=== PATIENT | male | born 1935 | race Caucasian/White ===

== ENCOUNTER 2019-09-04 16:39 | Inpatient (IN) | payer OTHER ==
[2019-09-04 16:51] VITALS: BMI 34.2
--- NOTE | 2019-09-04 16:52 | PDOC ---
Rapid Medical Evaluation Medical Evaluation: Allergies Allergy/AdvReac Type Severity Reaction Status Date / Time No Known Drug Allergies Allergy Verified 03/17/13 15:07 I have performed a brief in-person evaluation of this patient. The patient presents with a chief complaint of: hx of DM, HTN, HLD c/o LLQ abd pain pain from today along with 5 episodes of NBNB emesis, denies diarrhea, urinary sxs, fever, sob, cp; hx of appendectomy and kidney stones Pertinent physical exam findings: In NAD, mild TTP LLQ I have ordered the following: Labs The patient will proceed to the ED for further evaluation. 09/04/19 16:48
[2019-09-04] MEDS ORDERED: ACETAMINOPHEN 1000 MG/100 ML VIAL (NON FORMULARY) IVPB ONE (16:53)
[2019-09-04] MEDS ORDERED: SODIUM CHLORIDE 500 ML IV STA (16:53)
[2019-09-04] MEDS ORDERED: ONDANSETRON 4 MG/2 ML VIAL IVPUSH ONE (16:53)
[2019-09-04] MEDS ORDERED: ONDANSETRON 4 MG/2 ML VIAL ONE (17:30)
[2019-09-04] MEDS ORDERED: ACETAMINOPHEN INJECTION 100 ML IVPB ONE (17:30)
[2019-09-04 17:37] LABS: BASO % 0.3 % (0-2.0); EOS % 0.1 % (0-4.5); HEMATOCRIT 46.6 % (35.4-49); HEMOGLOBIN 15.5 GM/dL (11.7-16.9); LYMPH % 7.4 % (8-40); MCH 30.3 pg (25.7-33.7); MCHC 33.4 g/dl (32.0-35.9); MEAN CELL VOLUME 90.8 fl (80-96); MEAN PLT VOLUME 8.9 fl (7.5-11.1); MONO % 3.9 % (3.8-10.2); NEUT % 88.3 % (42.8-82.8); PLATELET COUNT 160 K/MM3 (134-434); RBC 5.13 M/mm3 (4.00-5.60); RDW 13.9 % (11.9-15.9); WHITE BLOOD COUNT 14.7 K/mm3 (4.0-10.0)
[2019-09-04] MEDS ORDERED: morphine CARPU-JECT 4 MG/1 ML DISP.SYRIN IVPUSH ONE ×2 (17:51→19:33)
[2019-09-04] MEDS ORDERED: FAMOTIDINE 20 MG/50 ML IVPB 20 MG/50 ML MG IVPB ONE ×2 (17:51→18:05)
[2019-09-04 17:53] LABS: EPI CELLS 0.5 /HPF (0-5/HPF); HYALINE CASTS 1 /lpf (0-8); URINE APPEARANCE CLEAR; URINE BACTERIA 0.7 /hpf (NEGATIVE); URINE BILIRUBIN NEGATIVE (NEGATIVE); URINE COLOR YELLOW; URINE GLUCOSE (UA) 3+ (NEGATIVE); URINE KETONE TRACE (NEGATIVE); URINE LEUK ESTERASE NEGATIVE (NEGATIVE); URINE NITRITE NEGATIVE (NEGATIVE); URINE PROTEIN TRACE (NEGATIVE); URINE UROBILINOGEN 0.2 mg/dL (0.2-1.0); URINE WBC 1 /hpf (0-5)
--- NOTE | 2019-09-04 17:57 | PDOC ---
History of Present Illness - General Chief Complaint: Pain Stated Complaint: ABDOMINAL PAIN/VOMITTING Time Seen by Provider: 09/04/19 16:48 History Source: Patient, Family Exam Limitations: No Limitations - History of Present Illness Initial Comments: 09/04/19 17:53 HPI 83-year-old male with history of kidney stone, hypertension, hyperlipidemia presenting with acute onset of left flank pain radiating down to left lower quadrant. started suddenly this afternoon, progressively worsening; feels similar to prior kidney stone, no prior interventions. last BM today, normal stooling. Denies fever, chills, chest pain, SOB, palpitation, dizziness, weakness, diarrhea or constiption. bladder and bowel problems, hematuria, urgency/ frequency, focal weakness/paresthesias, leg swelling/pain, rash. No sick contacts or travel. No new changes in medications. No suspicious food intake Allergies: None Past Medical History/PSH: Appendectomy Social history: Lives with family. No tobacco, ETOH or drug use. Meds: as documented in EMR - Ecotrin, omega-3, amlodipine, Jardiance, Januvia, atorvastatin, losartan, folic acid, B12, D3, glimepiride Review of systems Constitutional: no fevers or chills. No weakness HEENT: no headache or dizziness. No congestion. No visual/hearing disturbances. CVS: no cp or syncope. Resp: no sob. No cough. Gastrointestinal: +abdominal pain, nausea, vomiting, no constipation or diarrhea. Genitourinary: no urinary sx, hematuria. MUSCULOSKELETAL: No joint pain and swelling. No neck or back pain. SKIN: no redness or skin changes, no discharge, no rash. No wounds. Hematologic: no easy bruising/bleeding. NEUROLOGIC: No headache, dizziness, LOC or altered mental status. No weakness, numbness or tingling. Psych: no anxiety or depression Allergic/Immunologic: no allergies All other systems reviewed and negative, or as documented in HPI. Physical exam General: moderate distress 2/2 nausea/vomiting. HEENT: NCAT, PERRL, EOMI, clear conjunctiva, anicteric, moist mucus membranes, clear oropharynx, no oral lesions.. Neck: neck supple, FROM Resp: CTAB, normal and even respirations, no respiratory distress CVS: +tachycardia, no murmurs, 2+ peripheral pulses throughout, no peripheral edema Abdomen: soft, +vol guarding, +Left flank and LUQ TTP. no CVAT Back: nontender, normal inspection and ROM MSK: no edema, FAY x4, ROM intact. No clubbing or cyanosis. normal bulk and tone. Neuro: alert, oriented appropriately; no focal neurologic deficits Psych: Calm and cooperative Skin: warm and well perfused, cap refill <2 sec, normal color, no rash or skin discoloration. Past History - Past Medical History Allergies/Adverse Reactions: Allergies Allergy/AdvReac Type Severity Reaction Status Date / Time No Known Drug Allergies Allergy Verified 09/04/19 16:51 Home Medications: Ambulatory Orders Docosahexanoic Acid/Epa [Fish Oil Softgel] 1 each PO DAILY #0 capsule 03/18/13 Ezetimibe/Simvastatin [Vytorin 10-40 mg Tablet] 1 each PO DAILY #0 tablet Losartan Potassium 100 mg PO DAILY #0 tablet 03/18/13 Ramipril [Altace] 10 mg PO DAILY #0 capsule 03/18/13 Anemia: No Asthma: No Cancer: No Cardiac Disorders: No CVA: No COPD: No CHF: No Dementia: No Diabetes: Yes (BORDERLINE DIABETES) GI Disorders: No Disorders: No HTN: Yes Hypercholesterolemia: Yes Liver Disease: No Seizures: No Thyroid Disease: No - Surgical History Appendectomy: Yes - Psycho Social/Smoking Cessation Hx Smoking History: Never smoked Have you smoked in the past 12 months: No Hx Alcohol Use: No Drug/Substance Use Hx: No Substance Use Type: None Hx Substance Use Treatment: No *Physical Exam - Vital Signs Last Vital Signs Temp Pulse Resp BP Pulse Ox 97 F L 87 18 166/73 98 09/04/19 16:47 09/04/19 16:47 09/04/19 16:47 09/04/19 16:47 09/04/19 16:47 ED Treatment Course - LABORATORY CBC & Chemistry Diagram: 09/04/19 17:30 09/04/19 17:30 - ADDITIONAL ORDERS Additional order review: Laboratory Results 09/04/19 17:30 Urine Color Yellow Urine Appearance Clear Urine pH 5.0 Ur Specific [place] 1.023 Urine Protein Trace Urine Glucose (UA) 3+ H Urine Ketones Trace H Urine Blood 3+ H Urine Nitrite Negative Urine Bilirubin Negative Urine Urobilinogen 0.2 Ur Leukocyte Esterase Negative Urine WBC (Auto) 1 Urine Casts (Auto) 1 U Epithel Cells (Auto) 0.5 Urine Bacteria (Auto) 0.7 09/04/19 17:30 RBC 5.13 MCV 90.8 MCHC 33.4 RDW 13.9 MPV 8.9 Neutrophils % 88.3 H Lymphocytes % 7.4 L Monocytes % 3.9 Eosinophils % 0.1 Basophils % 0.3 - RADIOLOGY Radiology Studies Ordered: Category Date Time Status SPIRAL- RENAL-STONE CT [CT] Stat CT Scan 09/04/19 17:52 Ordered - Medications Given in the ED: ED Medications Discontinued Medications Generic Name Dose Route Start Last Admin Trade Name Freq PRN Reason Stop Dose Admin Acetaminophen 1,000 mg 09/04/19 16:53 09/04/19 17:35 Ofirmev Injection - IVPB 09/04/19 16:54 1,000 mg ONCE ONE Administration Sodium Chloride 500 mls @ 500 mls/hr 09/04/19 16:53 09/04/19 17:35 Normal Saline - IV 09/04/19 17:52 500 mls/hr ASDIR STA Administration Medical Decision Making - Medical Decision Making 09/04/19 17:55 Vital Signs Temp Pulse Resp BP Pulse Ox 97 F L 87 18 166/73 98 09/04/19 16:47 09/04/19 16:47 09/04/19 16:47 09/04/19 16:47 09/04/19 16:47 DDx abdominal pain: Renal colic, biliary colic, metabolic/electrolyte derangements. GERD, PUD, esophageal spasm, pancreatitis, hepatitis, constipation , colitis, gastroenteritis, cholecystitis, UTI, pyelonephritis, ileus, SBO, medication side effect, hernia, appendicitis, diverticulitis, mesenteric ischemia. msk strain, mesenteric adenitis, psoas abscess. Laboratory results significant for leukocytosis 14.7K, electrolytes are normal, mild GAYATHRI is noted with creatinine 1.8, electrolytes are fine. Urinalysis reveals hematuria trace ketones and some glucose negative preliminarily for infection. This is going more with presumed kidney stone. CT spiral to elucidate location and stone presents. Limited bedside ultrasound with bilateral renal cysts, no significant hydro-confirm with CT spiral analgesia given, IVF, zofran, tylenol/morphine, CT does show mid ureter 4mm stone, +moderate hydro uro cs, wbc ct and Cr elevation with stone. admit for pain control, GAYATHRI/leukocytosis in setting of stone. s/o overnight attending Dr Traore, pending CT read, uro eval and admission. pt and family amenable to impression and plan 09/04/19 18:39 09/04/19 20:01 Discharge - Discharge Information Problems reviewed: Yes Clinical Impression/Diagnosis: Ureterolithiasis, Hydronephrosis Condition: Fair - Admission Yes - Follow up/Referral - Patient Discharge Instructions - Post Discharge Activity
[2019-09-04] MEDS ORDERED: morphine SULFATE 4 MG/ML VIAL ONE ×2 (18:05→20:09)
[2019-09-04 18:06] LABS: ALBUMIN 4.3 g/dl (3.4-5.0); BILIRUBIN,TOTAL 0.8 mg/dL (0.2-1); CALCIUM 9.7 mg/dL (8.5-10.1); CREATININE 1.8 mg/dL (0.55-1.3); POTASSIUM 4.6 mmol/L (3.5-5.1); TOT PROT 7.4 g/dl (6.4-8.2)
[2019-09-04 19:52] LABS: YEAST 0 (NEGATIVE)
[2019-09-04 19:56] LABS: URINE RBC 20.6 /hpf (0-4)
--- NOTE | 2019-09-04 20:48 | HP ---
Admitting History and Physical - Primary Care Physician PCP: Cori Szymanski - Admission Chief Complaint: Left Flank Pain, Abdominal Pain History of Present Illness: This is a 83 y/o man with a PMHx of Renal Calculi, Hypertension, Hyperlipidemia. Who presents to the ED with acute onset of left flank pain radiating down to left lower quadrant since this afternoon. Patient reports that the pain is progressively worse, similar to prior renal colic, no prior interventions. Patient reports having a BM today firm and brown. Patient denies fever, cough, dizziness, SOB, CP, palpitations, nausea, diarrhea, hematochezia, melena, constipation, hematuria, dysuria. Patient denies no sick contacts or recent travel. Patient denies no new changes in medications, no suspicious food intake. History Source: Patient Limitations to Obtaining History: No Limitations - Past Medical History Cardiovascular: Yes: HTN, Hyperlipdemia Renal/: Yes: Renal Calculi - Past Surgical History Past Surgical History: Yes: Appendectomy, Joint Replacement (Left Knee) - Smoking History Smoking history: Never smoked Have you smoked in the past 12 months: No - Alcohol/Substance Use Hx Alcohol Use: No History of Substance Use: reports: None - Social History Usual Living Arrangement: Yes: Other (family) ADL: Independent History of Recent Travel: No Home Medications - Allergies Allergies/Adverse Reactions: Allergies Allergy/AdvReac Type Severity Reaction Status Date / Time No Known Drug Allergies Allergy Verified 09/04/19 16:51 - Home Medications Home Medications: Ambulatory Orders Docosahexanoic Acid/Epa [Fish Oil Softgel] 1 each PO DAILY #0 capsule 03/18/13 Ezetimibe/Simvastatin [Vytorin 10-40 mg Tablet] 1 each PO DAILY #0 tablet Losartan Potassium 100 mg PO DAILY #0 tablet 03/18/13 Ramipril [Altace] 10 mg PO DAILY #0 capsule 03/18/13 Family Medical History Family Hx Cardiac Disorders: Mother ([place] in her 50's), Father ( age 91) Family Hx Diabetes: Sister Review of Systems - Review of Systems Constitutional: reports: Chills Eyes: reports: No Symptoms HENT: reports: No Symptoms Neck: reports: No Symptoms Cardiovascular: reports: No Symptoms Respiratory: reports: No Symptoms Gastrointestinal: reports: Abdominal Pain, Vomiting Genitourinary: reports: Flank Pain Breasts: reports: No Symptoms Reported Musculoskeletal: reports: No Symptoms Integumentary: reports: No Symptoms Neurological: reports: No Symptoms Endocrine: reports: No Symptoms Hematology/Lymphatic: reports: No Symptoms Psychiatric: reports: No Symptoms Pain Intensity: 8 Physical Examination Vital Signs: Vital Signs Temperature 97.4 F L 09/04/19 19:56 Pulse Rate 87 09/04/19 19:56 Respiratory Rate 14 09/04/19 19:56 Blood Pressure 144/84 09/04/19 19:56 O2 Sat by Pulse Oximetry (%) 97 09/04/19 19:56 Constitutional: Yes: Well Nourished, No Distress, Calm, Obese Eyes: Yes: WNL, Conjunctiva Clear, EOM Intact, PERRL HENT: Yes: WNL, Atraumatic, Normocephalic Neck: Yes: WNL, Supple, Trachea Midline Cardiovascular: Yes: WNL, Regular Rate and Rhythm, S1, S2 Respiratory: Yes: WNL, Regular, CTA Bilaterally Gastrointestinal: Yes: Normal Bowel Sounds, Soft, Abdomen, Obese, Tenderness ( LMQ) Renal/: Yes: WNL. No: CVA Tenderness - Left, CVA Tenderness - Right Breast(s): Yes: WNL Musculoskeletal: Yes: WNL Extremities: Yes: WNL Edema: No Peripheral Pulses WNL: Yes Integumentary: Yes: WNL Neurological: Yes: WNL, Alert, Oriented, Cran Nerves II-XII Intact ...Motor Strength: WNL Psychiatric: Yes: WNL, Alert, Oriented Labs: CBC, BMP 09/04/19 17:30 09/04/19 17:30 Laboratory Results - last 24 hr 09/04/19 09/04/19 09/04/19 17:30 17:30 17:30 WBC 14.7 H RBC 5.13 Hgb 15.5 Hct 46.6 MCV 90.8 MCH 30.3 MCHC 33.4 RDW 13.9 Plt Count 160 MPV 8.9 Absolute Neuts (auto) 13.0 H Neutrophils % 88.3 H Lymphocytes % 7.4 L Monocytes % 3.9 Eosinophils % 0.1 Basophils % 0.3 Nucleated RBC % 0 Sodium 137 Potassium 4.6 Chloride 107 Carbon Dioxide 22 Anion Gap 8 BUN 35.0 H Creatinine 1.8 H Est GFR (CKD-EPI)AfAm 40.02 Est GFR (CKD-EPI)NonAf 34.53 Random Glucose 184 H Calcium 9.7 Total Bilirubin 0.8 AST 18 ALT 21 Alkaline Phosphatase 70 Total Protein 7.4 Albumin 4.3 Lipase 97 Urine Color Yellow Urine Appearance Clear Urine pH 5.0 Ur Specific [place] 1.023 Urine Protein Trace Urine Glucose (UA) 3+ H Urine Ketones Trace H Urine Blood 3+ H Urine Nitrite Negative Urine Bilirubin Negative Urine Urobilinogen 0.2 Ur Leukocyte Esterase Negative Urine WBC (Auto) 1 Urine RBC (Auto) 20.6 Urine Casts (Auto) 1 U Epithel Cells (Auto) 0.5 Urine Bacteria (Auto) 0.7 Urine Yeast (Auto) 0 Imaging - Results Chest X-ray: Image Reviewed Cat Scan: Report Reviewed, Image Reviewed EKG: Image Reviewed Problem List - Problems (1) Ureterolithiasis Assessment/Plan: CTAP- 5x2mm calculus in Left UPJ, mild-moderate L- hydronephrosis, 2mm nonobstructing left renal calyceal, b/l renal cortical cysts. UA- +3 Blood, +3 Glucose, trace Ketones Urine Culture-pending Leukocytosis with L- shift Appreciate Urology consult Continue IVF Flomax Strain urine Monitor CBC, BMP Monitor vitals NPO Code(s): N20.1 - CALCULUS OF URETER (2) Hydronephrosis Assessment/Plan: See above Code(s): N13.30 - UNSPECIFIED HYDRONEPHROSIS (3) Abdominal pain Assessment/Plan: Likely due to Nephrolithiasis CTAP report- 5x2mm calculus left UPJ, 2mm nonobstructing left renal calyceal calculus, cholelithiasis Continue IVF Morphine Sulfate given in ED, would use judiciously Ofirmev prn Monitor CBC, BMP Monitor vitals Code(s): R10.9 - UNSPECIFIED ABDOMINAL PAIN (4) HTN (hypertension) Assessment/Plan: stable Monitor BP Continue Losartan Hold Ramipril secondary to GAYATHRI Monitor renal function Code(s): I10 - ESSENTIAL (PRIMARY) HYPERTENSION (5) HLD (hyperlipidemia) Assessment/Plan: stable Continue home med Monitor LFTs Code(s): E78.5 - HYPERLIPIDEMIA, UNSPECIFIED Assessment/Plan This is a 83 y/o man with a PMHx of HTN, HLD, Renal Calculi. Admitted for Nephrolithiasis, GAYATHRI for further evaluation of their emergent condition. Plan: See Problem List FEN D51/2NS@42ml/hr Replete lytes prn NPO DVT ppx OOB SCDs Hold ACs secondary to Hematuria Code Status: Full Code Dispo: Requires Inpatient Care Visit type - Emergency Visit Emergency Visit: Yes ED Registration Date: 09/04/19 Care time: The patient presented to the Emergency Department on the above date and was hospitalized for further evaluation of their emergent condition. - New Patient This patient is new to me today: Yes Date on this admission: 09/04/19 - Critical Care Critical Care patient: No
[2019-09-04] MEDS: SODIUM CHLORIDE 1,000 ML IV SCH (21:08)
[2019-09-04] MEDS ORDERED: ACETAMINOPHEN 1000 MG/100 ML VIAL (NON FORMULARY) IVPB PRN (23:00)
[2019-09-05] MEDS: TAMSULOSIN HCL 0.4 MG CAP PO SCH (08:23)
[2019-09-05 08:40] LABS: BASO % 0.2 % (0-2.0); EOS % 0.2 % (0-4.5); HEMATOCRIT 42.9 % (35.4-49); HEMOGLOBIN 14.5 GM/dL (11.7-16.9); LYMPH % 11.3 % (8-40); MCH 30.6 pg (25.7-33.7); MCHC 33.9 g/dl (32.0-35.9); MEAN CELL VOLUME 90.4 fl (80-96); MEAN PLT VOLUME 9.1 fl (7.5-11.1); MONO % 10.3 % (3.8-10.2); PLATELET COUNT 160 K/MM3 (134-434); RBC 4.74 M/mm3 (4.00-5.60); RDW 14.2 % (11.9-15.9); WHITE BLOOD COUNT 10.6 K/mm3 (4.0-10.0)
[2019-09-05 09:05] LABS: BLOOD UREA NITROGEN 28.5 mg/dL (7-18); CALCIUM 9.1 mg/dL (8.5-10.1); CREATININE 1.9 mg/dL (0.55-1.3)
[2019-09-05] MEDS ORDERED: EZETIMIBE 10 MG TABLET (FP) PO SCH ×2 (10:00→22:00)
--- NOTE | 2019-09-05 11:29 | EKG ---
Test Reason : Blood Pressure : / mmHG Vent. Rate : 088 BPM Atrial Rate : 088 BPM P-R Int : 216 ms QRS Dur : 158 ms QT Int : 448 ms P-R-T Axes : 024 -19 175 degrees QTc Int : 542 ms SINUS RHYTHM WITH 1ST DEGREE A-V BLOCK WITH FREQUENT PREMATURE VENTRICULAR COMPLEXES LEFT BUNDLE BRANCH BLOCK ABNORMAL ECG WHEN COMPARED WITH ECG OF 10-JUL-2008 09:26, PREMATURE VENTRICULAR COMPLEXES ARE NOW PRESENT [place] INTERVAL HAS INCREASED VENT. RATE HAS INCREASED BY 44 BPM LEFT BUNDLE BRANCH BLOCK HAS REPLACED INCOMPLETE RIGHT BUNDLE BRANCH BLOCK Confirmed by AZAM PRESSLEY MD ([id number]) on 09/05/2019 11:28:58 AM Referred By: Confirmed By:AZAM PRESSLEY MD
[2019-09-05] MEDS: LOSARTAN POTASSIUM 50 MG TABLET (FP) PO SCH (12:19)
--- NOTE | 2019-09-05 13:24 | PN ---
Progress Note, Physician Chief Complaint: AWAKE ALERT EVENTS REVIEWED FEELS BETTER NOW - Current Medication List Current Medications: Active Medications Acetaminophen (Ofirmev Injection -) 1,000 mg IVPB Q6H PRN PRN Reason: PAIN LEVEL 6-10 Last Admin: 09/05/19 00:45 Dose: 1,000 mg Atorvastatin Calcium (Lipitor -) 20 mg PO HS KATERIN Ezetimibe (Zetia -) 10 mg PO HS KATERIN Sodium Chloride (Normal Saline -) 1,000 mls @ 42 mls/hr IV ASDIR [facility] Last Admin: 09/04/19 21:08 Dose: 42 mls/hr Losartan Potassium (Cozaar -) 100 mg PO DAILY [facility] Last Admin: 09/05/19 12:19 Dose: 100 mg Tamsulosin HCl (Flomax -) 0.4 mg PO DAILY@0830 [facility] Last Admin: 09/05/19 08:23 Dose: 0.4 mg - Objective Vital Signs: Vital Signs Temperature 98.4 F 09/05/19 08:28 Pulse Rate 74 09/05/19 08:28 Respiratory Rate 18 09/05/19 08:28 Blood Pressure 117/70 09/05/19 08:28 O2 Sat by Pulse Oximetry (%) 97 09/04/19 19:56 Constitutional: Yes: Mild Distress Cardiovascular: Yes: Regular Rate and Rhythm Respiratory: Yes: WNL Gastrointestinal: Yes: WNL, Abdomen, Obese Genitourinary: Yes: CVA Tenderness - Left Musculoskeletal: Yes: Back Pain Edema: No Peripheral Pulses WNL: Yes Integumentary: Yes: WNL Wound/Incision: Yes: Clean/Dry Neurological: Yes: WNL ...Motor Strength: WNL Psychiatric: Yes: WNL Labs: CBC, BMP 09/05/19 08:00 09/05/19 08:00 Problem List - Problems (1) Abdominal pain Code(s): R10.9 - UNSPECIFIED ABDOMINAL PAIN (2) HLD (hyperlipidemia) Code(s): E78.5 - HYPERLIPIDEMIA, UNSPECIFIED (3) HTN (hypertension) Code(s): I10 - ESSENTIAL (PRIMARY) HYPERTENSION (4) Hydronephrosis Code(s): N13.30 - UNSPECIFIED HYDRONEPHROSIS (5) Ureterolithiasis Code(s): N20.1 - CALCULUS OF URETER Assessment/Plan WORKUP IVF RENAL EVAL CHECK LABS MAY NEED CYSTOSCOPY, AWAIT WORKUP
[2019-09-05] MEDS ORDERED: morphine SULFATE 4 MG/ML VIAL IVPUSH PRN (13:25)
[2019-09-05] MEDS: SODIUM CHLORIDE 1,000 ML IV SCH (21:24)
[2019-09-05] MEDS ORDERED: ATORVASTATIN CA 20 MG TABLET (FP) PO SCH (22:00)
[2019-09-06 07:56] LABS: HEMATOCRIT 40.9 % (35.4-49); HEMOGLOBIN 13.7 GM/dL (11.7-16.9); MCH 30.7 pg (25.7-33.7); MCHC 33.6 g/dl (32.0-35.9); MEAN CELL VOLUME 91.2 fl (80-96); MEAN PLT VOLUME 8.8 fl (7.5-11.1); PLATELET COUNT 149 K/MM3 (134-434); RBC 4.48 M/mm3 (4.00-5.60); WHITE BLOOD COUNT 8.1 K/mm3 (4.0-10.0)
[2019-09-06 08:30] LABS: BLOOD UREA NITROGEN 30.8 mg/dL (7-18); CALCIUM 8.9 mg/dL (8.5-10.1); POTASSIUM 4.2 mmol/L (3.5-5.1)
[2019-09-06] MEDS: TAMSULOSIN HCL 0.4 MG CAP PO SCH (08:53)
[2019-09-06] MEDS: LOSARTAN POTASSIUM 50 MG TABLET (FP) PO SCH (08:58)
[2019-09-06] MEDS ORDERED: SODIUM CHLORIDE 1,000 ML IV SCH (09:25)
--- NOTE | 2019-09-06 09:25 | CONSULT ---
Consult - text type - Consultation Consultation Note: Renal consult for GAYATHRI Coverage for Dr. Díaz This is a 83 year old gentleman with history of nephrolithiasis, hypertension and hyperlipidemia who presented with flank pain and found to have a obstructing stone causing hydronephrosis and GAYATHRI. Pt with history of stones in the past. No history of renal dysfunction. No sob, chest pain, abd pain, fever ro chills. No leg swelling. No NSAID use. No recent contrast exposure. PMHx: as above Allergies: NKDA Family Hx: NC Social Hx: No T/A/D ROS: as per HPI, all other pertinent ros negative Home Medications Medication Instructions Recorded Docosahexanoic Acid/Epa [Fish Oil 1 each PO DAILY #0 capsule 03/18/13 Softgel] Ezetimibe/Simvastatin [Vytorin 1 each PO DAILY #0 tablet 03/18/13 10-40 mg Tablet] Losartan Potassium 100 mg PO DAILY #0 tablet 03/18/13 Ramipril [Altace] 10 mg PO DAILY #0 capsule 03/18/13 Amlodipine Besylate [Norvasc -] 5 mg PO DAILY 09/05/19 Atorvastatin Ca [Lipitor] 40 mg PO HS 09/05/19 Empagliflozin [Jardiance] 25 mg PO DAILY 09/05/19 Folic Acid 1 mg PO DAILY 09/05/19 Glimepiride 1 mg PO DAILY 09/05/19 Sitagliptin Phosphate [Januvia] 100 mg PO DAILY 09/05/19 Vital Signs Temperature 98.1 F 09/06/19 09:00 Pulse Rate 86 09/06/19 09:00 Respiratory Rate 18 09/06/19 09:00 Blood Pressure 113/62 09/06/19 09:00 O2 Sat by Pulse Oximetry (%) 97 09/04/19 19:56 Intake & Output 09/03/19 09/04/19 09/05/19 09/06/19 23:59 23:59 23:59 23:59 Intake Total 500 2100 252 Balance 500 2100 252 Weight 102.24 kg NAD awake and alert neck supple RRR CTA soft NT/ND no LE edema, clubbing or cyanosis no CVA tenderness CBC, BMP 09/06/19 07:32 09/06/19 07:32 Current Medications Acetaminophen (Ofirmev Injection -) 1,000 mg IVPB Q6H PRN PRN Reason: PAIN LEVEL 6-10 Last Admin: 09/05/19 00:45 Dose: 1,000 mg Atorvastatin Calcium (Lipitor -) 20 mg PO HS [facility] Last Admin: 09/05/19 21:24 Dose: 20 mg Ezetimibe (Zetia -) 10 mg PO HS [facility] Last Admin: 09/05/19 21:24 Dose: 10 mg Sodium Chloride (Normal Saline -) 1,000 mls @ 42 mls/hr IV ASDIR [facility] Last Admin: 09/05/19 21:24 Dose: 42 mls/hr Losartan Potassium (Cozaar -) 100 mg PO DAILY [facility] Last Admin: 09/06/19 08:58 Dose: 100 mg Morphine Sulfate (Morphine Sulfate) 4 mg IVPUSH Q6H PRN PRN Reason: PAIN LEVEL 7 - 10 Tamsulosin HCl (Flomax -) 0.4 mg PO DAILY@0830 [facility] Last Admin: 09/06/19 08:53 Dose: 0.4 mg 83 year old gentleman with history of nephrolithiasis, hypertension and hyperlipidemia who presented with flank pain and found to have a obstructing stone causing hydronephrosis and GAYATHRI. 1. Acute kidney injury secondary to obstruction from nephrolithiasis 2. Obstructing nephrolithiasis 3. Hydronephrosis 4. Hypertension 5. Hyperlipidemia Pt passed stone, expect renal function to improve and hydronephrosis to resolve Increase rate of IVF to 84cc per hour Can repeat BMP this afternoon Can continue Losartan for now pt can be discharge home this evening from renal perspective with outpatient follow up with PMD to monitor renal function Urology work up as an outpatient Advised to increase oral water intake to 2L daily at home to prevent recurrent stones Thank you Juvenal Peralta DO
--- NOTE | 2019-09-06 15:00 | DS ---
Physical Examination Vital Signs: Vital Signs Temperature 98.1 F 09/06/19 09:00 Pulse Rate 86 09/06/19 09:00 Respiratory Rate 18 09/06/19 09:00 Blood Pressure 113/62 09/06/19 09:00 O2 Sat by Pulse Oximetry (%) 97 09/04/19 19:56 Findings/Remarks: Laboratory Tests 09/04/19 09/04/19 09/04/19 17:30 17:30 17:30 WBC 14.7 H RBC 5.13 Hgb 15.5 Hct 46.6 MCV 90.8 MCH 30.3 MCHC 33.4 RDW 13.9 Plt Count 160 MPV 8.9 Absolute Neuts (auto) 13.0 H Neutrophils % 88.3 H Lymphocytes % 7.4 L Monocytes % 3.9 Eosinophils % 0.1 Basophils % 0.3 Nucleated RBC % 0 Sodium 137 Potassium 4.6 Chloride 107 Carbon Dioxide 22 Anion Gap 8 BUN 35.0 H Creatinine 1.8 H Est GFR (CKD-EPI)AfAm 40.02 Est GFR (CKD-EPI)NonAf 34.53 POC Glucometer Random Glucose 184 H Calcium 9.7 Total Bilirubin 0.8 AST 18 ALT 21 Alkaline Phosphatase 70 Total Protein 7.4 Albumin 4.3 Lipase 97 Urine Color Yellow Urine Appearance Clear Urine pH 5.0 Ur Specific [place] 1.023 Urine Protein Trace Urine Glucose (UA) 3+ H Urine Ketones Trace H Urine Blood 3+ H Urine Nitrite Negative Urine Bilirubin Negative Urine Urobilinogen 0.2 Ur Leukocyte Esterase Negative Urine WBC (Auto) 1 Urine RBC (Auto) 20.6 Urine Casts (Auto) 1 U Epithel Cells (Auto) 0.5 Urine Bacteria (Auto) 0.7 Urine Yeast (Auto) 0 Ur Random Creatinine U Random Total Protein Ur Random Sodium Ur Random Urea Nitrogn 09/05/19 09/05/19 09/05/19 08:00 08:00 11:13 WBC 10.6 H RBC 4.74 Hgb 14.5 Hct 42.9 MCV 90.4 MCH 30.6 MCHC 33.9 RDW 14.2 Plt Count 160 MPV 9.1 Absolute Neuts (auto) 8.3 H Neutrophils % 78.0 Lymphocytes % 11.3 D Monocytes % 10.3 H D Eosinophils % 0.2 D Basophils % 0.2 Nucleated RBC % 0 Sodium 139 Potassium 4.0 Chloride 110 H Carbon Dioxide 21 Anion Gap 8 BUN 28.5 H Creatinine 1.9 H Est GFR (CKD-EPI)AfAm 37.48 Est GFR (CKD-EPI)NonAf 32.34 POC Glucometer 101 Random Glucose 133 H Calcium 9.1 Total Bilirubin AST ALT Alkaline Phosphatase Total Protein Albumin Lipase Urine Color Urine Appearance Urine pH Ur Specific [place] Urine Protein Urine Glucose (UA) Urine Ketones Urine Blood Urine Nitrite Urine Bilirubin Urine Urobilinogen Ur Leukocyte Esterase Urine WBC (Auto) Urine RBC (Auto) Urine Casts (Auto) U Epithel Cells (Auto) Urine Bacteria (Auto) Urine Yeast (Auto) Ur Random Creatinine U Random Total Protein Ur Random Sodium Ur Random Urea Nitrogn 09/05/19 09/05/19 09/06/19 17:39 21:26 06:13 WBC RBC Hgb Hct MCV MCH MCHC RDW Plt Count MPV Absolute Neuts (auto) Neutrophils % Lymphocytes % Monocytes % Eosinophils % Basophils % Nucleated RBC % Sodium Potassium Chloride Carbon Dioxide Anion Gap BUN Creatinine Est GFR (CKD-EPI)AfAm Est GFR (CKD-EPI)NonAf POC Glucometer 134 116 94 Random Glucose Calcium Total Bilirubin AST ALT Alkaline Phosphatase Total Protein Albumin Lipase Urine Color Urine Appearance Urine pH Ur Specific [place] Urine Protein Urine Glucose (UA) Urine Ketones Urine Blood Urine Nitrite Urine Bilirubin Urine Urobilinogen Ur Leukocyte Esterase Urine WBC (Auto) Urine RBC (Auto) Urine Casts (Auto) U Epithel Cells (Auto) Urine Bacteria (Auto) Urine Yeast (Auto) Ur Random Creatinine U Random Total Protein Ur Random Sodium Ur Random Urea Nitrogn 09/06/19 09/06/19 09/06/19 07:32 07:32 08:46 WBC 8.1 RBC 4.48 Hgb 13.7 Hct 40.9 MCV 91.2 MCH 30.7 MCHC 33.6 RDW 14.0 Plt Count 149 MPV 8.8 Absolute Neuts (auto) Neutrophils % Lymphocytes % Monocytes % Eosinophils % Basophils % Nucleated RBC % Sodium 138 Potassium 4.2 Chloride 110 H Carbon Dioxide 22 Anion Gap 6 L BUN 30.8 H Creatinine 2.0 H Est GFR (CKD-EPI)AfAm 35.23 Est GFR (CKD-EPI)NonAf 30.40 POC Glucometer Random Glucose 110 H Calcium 8.9 Total Bilirubin AST ALT Alkaline Phosphatase Total Protein Albumin Lipase Urine Color Urine Appearance Urine pH Ur Specific [place] Urine Protein Urine Glucose (UA) Urine Ketones Urine Blood Urine Nitrite Urine Bilirubin Urine Urobilinogen Ur Leukocyte Esterase Urine WBC (Auto) Urine RBC (Auto) Urine Casts (Auto) U Epithel Cells (Auto) Urine Bacteria (Auto) Urine Yeast (Auto) Ur Random Creatinine U Random Total Protein Ur Random Sodium 45 Ur Random Urea Nitrogn 09/06/19 09/06/19 09/06/19 08:46 08:46 08:47 WBC RBC Hgb Hct MCV MCH MCHC RDW Plt Count MPV Absolute Neuts (auto) Neutrophils % Lymphocytes % Monocytes % Eosinophils % Basophils % Nucleated RBC % Sodium Potassium Chloride Carbon Dioxide Anion Gap BUN Creatinine Est GFR (CKD-EPI)AfAm Est GFR (CKD-EPI)NonAf POC Glucometer Random Glucose Calcium Total Bilirubin AST ALT Alkaline Phosphatase Total Protein Albumin Lipase Urine Color Urine Appearance Urine pH Ur Specific [place] Urine Protein Urine Glucose (UA) Urine Ketones Urine Blood Urine Nitrite Urine Bilirubin Urine Urobilinogen Ur Leukocyte Esterase Urine WBC (Auto) Urine RBC (Auto) Urine Casts (Auto) U Epithel Cells (Auto) Urine Bacteria (Auto) Urine Yeast (Auto) Ur Random Creatinine 92.0 U Random Total Protein 16.4 H Ur Random Sodium Ur Random Urea Nitrogn 661 09/06/19 11:58 WBC RBC Hgb Hct MCV MCH MCHC RDW Plt Count MPV Absolute Neuts (auto) Neutrophils % Lymphocytes % Monocytes % Eosinophils % Basophils % Nucleated RBC % Sodium Potassium Chloride Carbon Dioxide Anion Gap BUN Creatinine Est GFR (CKD-EPI)AfAm Est GFR (CKD-EPI)NonAf POC Glucometer 136 Random Glucose Calcium Total Bilirubin AST ALT Alkaline Phosphatase Total Protein Albumin Lipase Urine Color Urine Appearance Urine pH Ur Specific [place] Urine Protein Urine Glucose (UA) Urine Ketones Urine Blood Urine Nitrite Urine Bilirubin Urine Urobilinogen Ur Leukocyte Esterase Urine WBC (Auto) Urine RBC (Auto) Urine Casts (Auto) U Epithel Cells (Auto) Urine Bacteria (Auto) Urine Yeast (Auto) Ur Random Creatinine U Random Total Protein Ur Random Sodium Ur Random Urea Nitrogn Active Medications Generic Name Dose Route Start Last Admin Trade Name Freq PRN Reason Stop Dose Admin Acetaminophen 1,000 mg 09/04/19 23:00 09/05/19 00:45 Ofirmev Injection - IVPB 1,000 mg Q6H PRN Administration PAIN LEVEL 6-10 Atorvastatin Calcium 20 mg 09/05/19 22:00 09/05/19 21:24 Lipitor - PO 20 mg HS KATERIN Administration Ezetimibe 10 mg 09/05/19 22:00 09/05/19 21:24 Zetia - PO 10 mg HS KATERIN Administration Sodium Chloride 1,000 mls @ 84 mls/hr 09/06/19 09:25 Normal Saline - IV ASDIR KATERIN Losartan Potassium 100 mg 09/05/19 10:00 09/06/19 08:58 Cozaar - PO 100 mg DAILY KATERIN Administration Morphine Sulfate 4 mg 09/05/19 13:25 Morphine Sulfate IVPUSH Q6H PRN PAIN LEVEL 7 - 10 Tamsulosin HCl 0.4 mg 09/05/19 08:30 09/06/19 08:53 Flomax - PO 0.4 mg DAILY@0830 KATERIN Administration Constitutional: Yes: No Distress, Calm Eyes: Yes: Conjunctiva Clear HENT: Yes: Atraumatic Cardiovascular: Yes: Regular Rate and Rhythm Respiratory: Yes: Regular, CTA Bilaterally Gastrointestinal: Yes: Normal Bowel Sounds, Soft Musculoskeletal: Yes: WNL Extremities: Yes: WNL Edema: No Neurological: Yes: Alert, Oriented Psychiatric: Yes: Alert, Oriented Labs: CBC, BMP 09/06/19 07:32 09/06/19 07:32 Discharge Summary Problems reviewed: Yes Reason For Visit: ACUTE KIDNEY INJURY/CALCULUS OF KIDNEY Current Active Problems Abdominal pain (Acute) HLD (hyperlipidemia) (Acute) HTN (hypertension) (Acute) Hydronephrosis (Acute) Ureterolithiasis (Acute) Hospital Course: This is a 83 y/o man with a PMHx of Renal Calculi, Hypertension, Hyperlipidemia. Who presents to the ED with acute onset of left flank pain radiating down to left lower quadrant since this afternoon. Patient reports that the pain is progressively worse, similar to prior renal colic, no prior interventions. Patient reports having a BM today firm and brown. Patient denies fever, cough, dizziness, SOB, CP, palpitations, nausea, diarrhea, hematochezia, melena, constipation, hematuria, dysuria. Patient denies no sick contacts or recent travel. Patient denies no new changes in medications, no suspicious food intake. Patient was followed by Nephrology due to elevated renal function. Patient was able to pass stone on his own. Stone collected and sent for analysis. Repeat CMP to see if renal function improved. Condition: Stable - Instructions Diet, Activity, Other Instructions: Follow up with pmd in 1 week of discharge Made aware to follow up with Urologist Dr Matthew Made aware to follow up [facility] Dr Peralta continue with medication as prescribed return to ER if develop severe pain, respiratory distress, chest pain Referrals: Chapo Apodaca MD [Staff Physician] - Arleen Brambila MD [Staff Physician] - Juvenal Peralta MD [Staff Physician] - Disposition: HOME - Home Medications Comprehensive Discharge Medication List: Ambulatory Orders Docosahexanoic Acid/Epa [Fish Oil Softgel] 1 each PO DAILY #0 capsule 03/18/13 Ezetimibe/Simvastatin [Vytorin 10-40 mg Tablet] 1 each PO DAILY #0 tablet Losartan Potassium 100 mg PO DAILY #0 tablet 03/18/13 Ramipril [Altace] 10 mg PO DAILY #0 capsule 03/18/13 Amlodipine Besylate [Norvasc -] 5 mg PO DAILY 09/05/19 Atorvastatin Ca [Lipitor] 40 mg PO HS 09/05/19 Empagliflozin [Jardiance] 25 mg PO DAILY 09/05/19 Folic Acid 1 mg PO DAILY 09/05/19 Glimepiride 1 mg PO DAILY 09/05/19 Sitagliptin Phosphate [Januvia] 100 mg PO DAILY 09/05/19 Tamsulosin HCl [Flomax -] 0.4 mg PO DAILY@0830 #30 cap.er.24h 09/06/19
[2019-09-06 15:28] VITALS: BP 129/49; PULSE 75; TEMP 97.7
[2019-09-06 15:44] LABS: BLOOD UREA NITROGEN 30.7 mg/dL (7-18); CALCIUM 8.6 mg/dL (8.5-10.1); POTASSIUM 4.2 mmol/L (3.5-5.1)
--- NOTE | 2019-09-06 16:41 | CONS ---
DATE OF CONSULTATION: DATE OF DICTATION: 09/06/2019 The patient is an 83-year-old gentleman admitted with acute flank pain. Imaging revealed a 5-mm ureteral stone near the bladder. Patient was started on IV fluids and approximately 24 hours after admission, the stone passed and the patient's pain was resolved. At no time was the patient febrile and, although he was nauseated, there was no vomiting reported. The patient reports that he did have a stone treated with lithotripsy 15 to 20 years ago and has had no difficulty with stones since that time. In addition, the patient has had a prior transurethral resection of the prostate and denies any voiding difficulty prior to admission or in fact since admission. At the time of the visit, the patient was ambulating comfortably, there was no flank pain elicited. In so far as the patient has passed his stone, there is no need for any intervention at this time and patient can be prepared for discharge. There is an additional 2-mm stone in the kidney reported on the CAT scan, which does not require any intervention at this time. There is also a small renal cyst, which also does not need intervention. In fact, the cyst size measures 7 cm, is actually slightly smaller than 9.5, which was the previous size measured. In summary, the patient passed a ureteral calculus. He can be discharged. The stone has been sent for stone analysis and the patient will come to the office to arrange for 24-hour urine for evaluation. MD BAY CHINCHILLA/[id number]
[2019-09-14 17:07] LABS: URIC ACID 100 % (.)
== END 2019-09-06 16:05 | disposition home or self-care (01) | DRG 694 ==
LOC: JER 16:39 → JERBED 20:46 → J5S 22:10
PROVIDERS: ADMIT Internal Medicine; ATTEND Family Medicine
DX: N13.2 Hydronephrosis with renal and ureteral calculous obstruction (principal); N17.9 Acute kidney failure, unspecified; I10 Essential (primary) hypertension; E78.5 Hyperlipidemia, unspecified; Z79.84 Long term (current) use of oral hypoglycemic drugs; E66.9 Obesity, unspecified; R73.03 Prediabetes; Z68.34 Body mass index [BMI] 34.0-34.9, adult
CPT/HCPCS: 36415; 71045-TC-FY; 74176-TC; 80048; 80053; 81003; 82360; 82565; 82962; 83690; 84156; 84300; 84540; 85025; 85027; 87205; 93005; 93010; 99284-25; J0131; J7030

== ENCOUNTER 2021-11-27 12:42 | Emergency (ER) | payer OTHER, MEDICARE ==
[2021-11-27 12:53] VITALS: BP 155/69; PULSE 76; TEMP 97.4; BMI 28.7
[2021-11-27] MEDS ORDERED: LIDOCAINE 5% TOPICAL PATCH TP ONE ×2 (13:08→13:18)
[2021-11-27] MEDS ORDERED: LIDOCAINE 5% TOPICAL PATCH ONE (13:19)
[2021-11-27 13:39] LABS: ALBUMIN 3.9 g/dl (3.4-5.0); CALCIUM 9.5 mg/dl (8.5-10); CREATININE 1.5 mg/dl (0.55-1.3); TOT PROT 7.1 g/dl (6.4-8.2)
[2021-11-27] MEDS ORDERED: METHOCARBAMOL 500 MG TABLET PO ONE (14:00)
[2021-11-27] MEDS ORDERED: METHOCARBAMOL 500 MG TABLET ONE (14:04)
[2021-11-27 14:47] LABS: INR 1.27 (0.83-1.09); PROTHROMBIN TIME (PATIENT) 14.6 SEC (9.7-13.0)
[2021-11-27 14:50] LABS: ACTIVATED PTT 31.8 SECONDS (25.2-36.5)
[2021-11-27 16:13] LABS: BASO % 0.4 % (0-2.0); EOS % 0.6 % (0-4.5); HEMATOCRIT 44.4 % (35.4-49); HEMOGLOBIN 14.8 GM/dL (11.7-16.9); LYMPH % 17.4 % (8-40); MCHC 33.2 g/dl (32.0-35.9); MEAN CELL VOLUME 90.3 fl (80-96); MEAN PLT VOLUME 8.9 fl (7.5-11.1); MONO % 7.2 % (3.8-10.2); NEUT % 74.4 % (42.8-82.8); PLATELET COUNT 160 10^3/uL (134-434); RBC 4.92 M/mm3 (4.00-5.60); RDW 13.8 % (11.9-15.9); WHITE BLOOD COUNT 8.6 K/mm3 (4.0-10.0)
[2021-11-27] MEDS ORDERED: LIDOCAINE PATCH REMOVAL MC SCH ×2 (22:00)
== END 2021-11-27 16:56 | disposition home or self-care (01) ==
LOC: FER 12:42 → MERGE 12:42 → FER 16:56
DX: M25.512 Pain in left shoulder (principal)
CPT/HCPCS: 36415; 71046-TC-FY; 73030-TC-LT-FY; 80053; 82550; 84484; 85025; 85610; 85730; 93005; 99285-25; C9803; U0003; U0005